=== PATIENT | female | born 1995 | race Caucasian/White ===

== ENCOUNTER 2017-01-09 10:25 | Emergency (ER) | payer SELFPAY ==
[2017-01-09] MEDS ORDERED: 0.9 % SODIUM CHLORIDE 1000ML 1,000 ML IV ONE (10:37)
[2017-01-09] MEDS ORDERED: 0.9 % SODIUM CHLORIDE 1,000 ML BAG IV ONE (10:37)
[2017-01-09] MEDS ORDERED: ONDANSETRON HCL IV 4 MG/2 ML VIAL IV ONE (10:37)
[2017-01-09] MEDS ORDERED: MORPHINE SULFATE 5 MG/ML PFS IVP ONE ×2 (10:38→12:08)
--- NOTE | 2017-01-09 10:44 | Emergency Department Record ---
History of Present Illness - General Chief Complaint: Abdominal Pain Stated Complaint: ABD PAIN/VOMITING/DIZZY Time Seen by Provider: 01/09/17 10:31 Source: Patient, Family Mode of Arrival: Ambulatory Limitations: No limitations - History of Present Illness Initial Comments: 21 yo female presents with nausea, vomiting, and diarrhea for about 2-3 weeks. She states several family members had the illness at that time but her symptoms have persisted. She has cramps and frequent stools. The cramps are periumbilical. No prior abdominal surgery. She was seen in the [facility] yesterday. She reports she was told she had a UTI. Currently she is not having frequency, dysuria, hematuria. MD Complaint: Abdominal pain, Other (Vomiting and diarrhea) -: Week(s) (3) Location: Periumbilical Radiation: None Migration to: No migration Severity: Moderate Quality: Aching, Cramping Consistency: Constant Improves With: Nothing Worsens With: Eating Associated Symptoms: Anorexia, Diarrhea, Nausea, Vomiting - Related Data Patient : No Home Medications Medication Instructions Recorded Confirmed Last Taken Levonorgestrel [Mirena] 1 each IY ASDIR each 08/01/16 01/09/17 01/08/17 Previous Rx's Medication Instructions Recorded Hydrocodone/Acetaminophen [Alton 1 tab PO Q6H PRN #10 tab 01/09/17 5mg/325mg] Ondansetron [Zofran Odt] 4 mg PO Q8H #15 tab.rapdis 01/09/17 Allergies Allergy/AdvReac Type Severity Reaction Status Date / Time azithromycin Allergy Mild HIVES Verified 01/09/17 10:41 tetanus immune globulin Allergy DIFFICULTY Verified 01/09/17 10:41 BREATHING Review of Systems Constitutional: Denies: Chills, Fever, Malaise, Weakness Eyes: Denies: Eye discharge, Eye pain, Photophobia ENT: Denies: Congestion, Ear pain, Throat pain Respiratory: Denies: Cough, Dyspnea, Hemoptysis, Stridor, Wheezes Cardiovascular: Denies: Chest pain, Syncope Endocrine: Denies: Fatigue, Polydipsia Gastrointestinal: Reports: Abdominal pain, Diarrhea, Nausea, Vomiting. Denies: Constipation, Hematemesis, Hematochezia, Melena Genitourinary: Denies: Dysuria, Frequency, Hematuria, Urgency Musculoskeletal: Denies: Arthralgia, Back pain, Joint swelling, Myalgia, Neck pain Skin: Denies: Bruising, Change in color, Rash Neurological: Denies: Headache, Numbness, Weakness Psychiatric: Denies: Anxiety Hematological/Lymphatic: Denies: Blood Clots, Easy bleeding, Easy bruising, Swollen glands Past Medical History - SOCIAL HISTORY Smoking Status: Never smoker Drug Use: None - RESPIRATORY Hx Respiratory Disorders: Yes Hx Bronchitis: Yes Hx Pneumonia: Yes - CARDIOVASCULAR Hx Cardio Disorders: No - NEURO Hx Neuro Disorders: No - GI Hx GI Disorders: No - Hx Genitourinary Disorders: No - ENDOCRINE Hx Endocrine Disorders: No - MUSCULOSKELETAL Hx Musculoskeletal Disorders: No - PSYCH Hx Psych Problems: Yes Hx Anxiety: Yes Hx Depression: Yes - HEMATOLOGY/ONCOLOGY Hx Hematology/Oncology Disorders: No Physical Exam - General General Appearance: Alert, Oriented x3, Cooperative, No acute distress Limitations: No limitations - Head Head exam: Normal inspection - Eye Eye exam: Normal appearance. negative: Conjunctival injection, Periorbital swelling - ENT ENT exam: Normal exam, Mucous membranes moist Ear exam: Normal external inspection Nasal Exam: Normal inspection Mouth exam: Normal external inspection Teeth exam: Normal inspection - Neck Neck exam: Normal inspection, Full ROM. negative: Tenderness - Respiratory Respiratory exam: Normal lung sounds bilaterally. negative: Respiratory distress - Cardiovascular Cardiovascular Exam: Regular rate, Normal rhythm, Normal heart sounds - GI/Abdominal GI/Abdominal exam: Soft, Normal bowel sounds, Tenderness (tender mid periumbilical, soft, no distension, no mass or hernia). negative: Diminished bowel sounds, Distended, Guarding, Hernia, Rebound - Rectal Rectal exam: Deferred - exam: Deferred - Extremities Extremities exam: Normal inspection, Full ROM, Normal capillary refill. negative: Tenderness - Back Back exam: Reports: Normal inspection, Full ROM. Denies: Muscle spasm, Rash noted, Tenderness - Neurological Neurological exam: Alert, Normal gait, Oriented X3 - Psychiatric Psychiatric exam: Normal affect, Normal mood - Skin Skin exam: Dry, Intact, Normal color, Warm Course - Reevaluation(s) Reevaluation #1: Given the duration of symptoms labs, stool culture and CT ordered 01/09/17 10:43 Reevaluation #2: The labs were reviewed. No acute changes of the CBC, CMP,Lipase, UA is LE positive. Micro pending 01/09/17 12:04 Reevaluation #3: CT of the abdomen and pelvis were negative for acute process. May have recent ruptured follicle. 01/09/17 14:00 Reevaluation #4: No diarrhea while in the ED She will be given an out patient stool study RX She can continue antibiotics 01/09/17 14:00 Medical Decision Making - Lab Data Result diagrams: 01/09/17 10:47 01/09/17 10:47 Disposition Disposition: Discharge Clinical Impression: Urinary tract infection Diarrhea Qualifiers: Diarrhea type: unspecified type Qualified Code(s): R19.7 - Diarrhea, unspecified Disposition: Home, Self-Care Condition: (1) Good Instructions: Loperamide (By mouth), Acute Diarrhea (ED) Additional Instructions: Call your doctor today to schedule close follow up Return if fever, vomiting or new concerns. Prescriptions: Hydrocodone/Acetaminophen [Alton 5mg/325mg] 1 tab PO Q6H PRN #10 tab PRN Reason: Pain - General Ondansetron [Zofran Odt] 4 mg PO Q8H #15 tab.rapdis Forms: Patient Portal Access Time of Disposition: 14:23
[2017-01-09 10:53] LABS: HEMATOCRIT 40.1 % (35.0-47.0); HEMOGLOBIN 13.9 gm/dl (11.6-16.0); MEAN CELL VOLUME 87.4 fl (81-97); MEAN CORPUSCULAR HEMOGLOBIN 30.3 pg (27-33); MEAN CORPUSCULAR HGB CONC 34.7 g/dl (32-36); MEAN PLATELET VOLUME 10.4 fl (7.4-10.4); PLATELET COUNT 227 K/uL (130-400); RED BLOOD COUNT 4.59 M/uL (3.80-5.40); RED CELL DISTRIBUTION WIDTH 11.9 % (11.5-14.5); WHITE BLOOD COUNT W/O DIFF 9.3 K/uL (4.2-12.2)
[2017-01-09] MEDS ORDERED: ACETAMINOPHEN 1,000 MG/100 ML BTL IVPB ONE (10:58)
[2017-01-09 11:03] LABS: PLATELET ESTIMATE NORMAL (NORMAL)
[2017-01-09 11:05] LABS: ALB/GLOB RATIO 1.4 (1.1-1.8); ALBUMIN 4.9 gm/dL (3.5-5.0); ALKALINE PHOSPHATASE 76 U/L (38-126); ALT/SGPT 22 U/L (9-52); ANION GAP 12.9 (7-16); AST/SGOT 21 U/L (14-36); BILIRUBIN,TOTAL 1.22 mg/dL (0.2-1.3); BLOOD UREA NITROGEN 12 mg/dL (7-17); CARBON DIOXIDE 23.1 mmol/L (22-30); CREATININE 0.7 mg/dL (0.52-1.04); EST GLOMERULAR FILTRATION RATE > 60 ml/min; GLUCOSE,RANDOM 108 mg/dL (70-110); LIPASE 39 U/L (23-300); TOTAL PROTEIN 8.4 gm/dL (6.3-8.2)
[2017-01-09 11:53] LABS: URINE APPEARANCE SL CLOUDY; URINE BILIRUBIN NEGATIVE (NEGATIVE); URINE BLOOD TRACE-I (NEGATIVE); URINE COLOR YELLOW; URINE GLUCOSE (UA) NEGATIVE (NEGATIVE); URINE KETONE NEGATIVE (NEGATIVE); URINE LEUKOCYTE ESTERASE MODERATE (NEGATIVE); URINE NITRITE NEGATIVE (NEGATIVE); URINE PROTEIN NEGATIVE (NEGATIVE); URINE UROBILINOGEN 0.2 E.U./dL (0.20 - 1.00)
[2017-01-09 12:03] LABS: URINE BACTERIA 1+; URINE WBC 36 - 50 (0-2/hpf)
[2017-01-09 12:04] LABS: HCG,QUALITATIVE URINE NEGATIVE (NEGATIVE)
[2017-01-09] MEDS ORDERED: ONDANSETRON HCL IV 4 MG/2 ML VIAL IVP ONE (12:20)
[2017-01-09] MEDS ORDERED: PROMETHAZINE HCL 25 MG/ML VIAL IVP ONE (12:41)
[2017-01-09 22:02] LABS: ROTOVIRUS NOT DETECTED (NOT DETECT)
[2017-01-09 22:10] LABS: CRYPTOSPORIDIUM PARVUM ANTIGEN NOT DETECTED (NOT DETECT); GIARDIA LAMBLIA ANTIGEN NOT DETECTED (NOT DETECT)
[2017-01-09 22:48] LABS: MOLECULAR C DIFF TOXIN SCREEN NOT DETECTED
--- NOTE | 2017-01-10 07:43 | CT SCAN REPORT ---
EXAM: CT OF THE ABDOMEN AND PELVIS WITH CONTRAST HISTORY: ABDOMINAL PAIN AND BACK PAIN. TECHNIQUE: Sequential axial images were obtained from the diaphragms through the ischiorectal fossa after intravenous and oral administration of 100 ml of Omnipaque 300 contrast material. Sagittal and coronal reformatted images were performed. FINDINGS: The visualized lung bases appear normal. The heart and pericardium appears normal. The liver, gallbladder, pancreas and spleen appear normal. The adrenal glands and kidneys appear normal. The small bowel appears normal. The appendix is visualized and appears normal. There is an IUD within the endometrium. There is a recently ruptured follicle in the right ovary. There is a small amount of free fluid in the cul-de-sac. The urinary bladder appears normal. The osseous structures are normal. IMPRESSION: NO ACUTE ABDOMINAL OR PELVIC DISEASE PROCESS. JOB NUMBER: [id number] [facility]
== END 2017-01-09 14:39 | disposition home or self-care (01) ==
LOC: ER 10:25
DX: N39.0 Urinary tract infection, site not specified (principal); R10.33 Periumbilical pain; R11.2 Nausea with vomiting, unspecified; R19.7 Diarrhea, unspecified; R42 Dizziness and giddiness
CPT/HCPCS: 74177; 80053; 81001; 81025; 82272; 83690; 85027; 87329; 87425; 87427; 87493; 89055; 96361; 96374; 96375; 96376; 99284; J2405; J2550; J7030

== ENCOUNTER 2017-03-08 13:04 | Emergency (ER) | payer SELFPAY ==
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
[2017-03-08] MEDS ORDERED: ONDANSETRON 4 MG ODT TABLET SL ONE (14:08)
[2017-03-08] MEDS ORDERED: ACETAMINOPHEN 500 MG TABLET PO ONE (14:33)
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
--- NOTE | 2017-03-08 23:27 | CT SCAN REPORT ---
EXAM: CT SCAN MAXILLOFACIAL WO CONTRAST HISTORY: HEADACHE, JAW PAIN. TECHNIQUE: Sequential axial images were obtained through the facial bones without intravenous contrast administration. Sagittal and coronal reformatted images were performed. FINDINGS: The paranasal sinuses are well aerated. The orbital rims are intact. The zygomatic arch is intact. The mandible is intact. There are a few missing teeth. No periapical lucencies. No evidence of fracture or dislocation. IMPRESSION: NEGATIVE FOR ACUTE ABNORMALITY. [facility]: [id number] [facility]
--- NOTE | 2017-03-08 23:30 | CT SCAN REPORT ---
EXAM: CT SCAN CERVICAL SPINE WO CONTRAST HISTORY: PAIN. TECHNIQUE: Sequential axial images were obtained through the cervical spine without intravenous contrast administration. FINDINGS: There is normal vertebral body height and alignment. No evidence of fracture, subluxation, or perched facet. No degenerative change. Prevertebral soft tissues are normal. IMPRESSION: NEGATIVE CT EXAMINATION OF THE CERVICAL SPINE. JOB NUMBER: [id number] [facility]
== END 2017-03-08 14:55 | disposition home or self-care (01) ==
LOC: ER 13:04
DX: S06.0X0A Concussion without loss of consciousness, initial encounter (principal); S00.03XA Contusion of scalp, initial encounter; S40.022A Contusion of left upper arm, initial encounter; M54.2 Cervicalgia; Z85.3 Personal history of malignant neoplasm of breast; Y04.0XXA Assault by unarmed brawl or fight, initial encounter
CPT/HCPCS: 70450; 70486; 72125; 99283; 99284

== ENCOUNTER 2017-08-13 05:44 | Emergency (ER) | payer SELFPAY ==
[2017-08-13 05:55] LABS: INFLUENZA A POSITIVE (NEGATIVE); INFLUENZA B NEGATIVE (NEGATIVE)
[2017-08-13] MEDS ORDERED: OSTELTAMIVIR 75 MG CAP PO ONE (06:02)
[2017-08-13] MEDS ORDERED: ACETAMINOPHEN 500 MG TABLET PO ONE (06:02)
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
== END 2017-08-13 06:16 | disposition home or self-care (01) ==
LOC: ER 05:44
DX: J10.1 Influenza due to other identified influenza virus with other respiratory manifestations (principal)
CPT/HCPCS: 87400; 99282

== ENCOUNTER 2017-09-08 04:23 | Emergency (ER) | payer SELFPAY ==
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
[2017-09-08] MEDS ORDERED: KETOROLAC 30 MG/ML VIAL IVP ONE (04:43)
[2017-09-08 04:46] LABS: BASO % 0.2 % (0-6); EOS % 0.9 % (0-6); HEMATOCRIT 34.9 % (35.0-47.0); HEMOGLOBIN 11.7 gm/dl (11.6-16.0); LYMPH % 42.5 % (16-45); MEAN CELL VOLUME 87.5 fl (81-97); MEAN CORPUSCULAR HEMOGLOBIN 29.3 pg (27-33); MEAN CORPUSCULAR HGB CONC 33.5 g/dl (32-36); MEAN PLATELET VOLUME 10.2 fl (7.4-10.4); MONO % 8.4 % (0-9); PLATELET COUNT 198 K/uL (130-400); RED BLOOD COUNT 3.99 M/uL (3.80-5.40); RED CELL DISTRIBUTION WIDTH 12.1 % (11.5-14.5); WHITE BLOOD COUNT W/O DIFF 5.8 K/uL (4.2-12.2)
[2017-09-08 04:55] LABS: BLOOD UREA NITROGEN 12 mg/dL (6-20); CREATININE 0.6 mg/dL (0.5-0.9); EST GLOMERULAR FILTRATION RATE > 60 mL/min
[2017-09-08 04:56] LABS: TOTAL PROTEIN 6.7 g/dL (6.6-8.7)
[2017-09-08 04:58] LABS: GLUCOSE,RANDOM 97 mg/dL (74-109)
[2017-09-08 05:01] LABS: ALB/GLOB RATIO 2.4 (1.1-1.8); ALBUMIN 4.7 g/dL (4.0-5.0); ALKALINE PHOSPHATASE 49 U/L (35-104); ALT/SGPT 16 U/L (<33); AST/SGOT 19 U/L (10.0-35.0)
--- NOTE | 2017-09-09 07:37 | CT ANGIOGRAM REPORT ---
EXAM: CTA OF THE CHEST HISTORY: CHEST PAIN. TECHNIQUE: CTA of the chest was performed following IV administration of 90 ml of Omnipaque 350 contrast. Axial images were obtained with coronal and sagittal MIP reconstructions. Comparison: None. FINDINGS: The visualized thyroid gland enhances normally. The mediastinal vasculature enhances normally. There is no intraluminal filling defect to suggest pulmonary embolus. Negative for thoracic aortic aneurysm or dissection. The heart and pericardium are unremarkable. No mediastinal or hilar adenopathy. Soft tissue density in the anterior mediastinum likely relates to residual thymic tissue, given patient age. Limited evaluation of the upper abdomen is unremarkable. The osseous structures are grossly intact. No pneumothorax. The visualized airways are patent. The lungs are clear. IMPRESSION: NEGATIVE CTA OF THE CHEST. JOB NUMBER: [id number] MTDD
== END 2017-09-08 08:12 | disposition home or self-care (01) ==
LOC: ER 04:23
DX: R07.2 Precordial pain (principal); R79.89 Other specified abnormal findings of blood chemistry; R42 Dizziness and giddiness
CPT/HCPCS: 99284 ×2; 96374; 85025; 80053; 84703; 85379; 71275; 93005; 93010; Q9967; J1885

== ENCOUNTER 2018-11-19 12:31 | Emergency (ER) | payer MEDICAID ==
[2018-11-19] MEDS ORDERED: 0.9 % SODIUM CHLORIDE 1,000 ML BAG IV ONE (12:39)
[2018-11-19] MEDS ORDERED: ACETAMINOPHEN 1,000 MG/100 ML BTL IVPB ONE (12:39)
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
[2018-11-19 13:11] LABS: ABSOLUTE NEUTROPHIL COUNT 4.96; BASO % 0.1 % (0-6); EOS % 0.1 % (0-6); GRAN % 64.4 % (47-80); HEMATOCRIT 34.2 % (35.0-47.0); HEMOGLOBIN 11.8 gm/dl (11.6-16.0); LYMPH % 28.9 % (16-45); MEAN CELL VOLUME 88.8 fl (81-97); MEAN CORPUSCULAR HEMOGLOBIN 30.6 pg (27-33); MEAN CORPUSCULAR HGB CONC 34.5 g/dl (32-36); MEAN PLATELET VOLUME 10.4 fl (7.4-10.4); MONO % 6.5 % (0-9); PLATELET COUNT 210 K/uL (130-400); RED BLOOD COUNT 3.85 M/uL (3.80-5.40); RED CELL DISTRIBUTION WIDTH 12.3 % (11.5-14.5); WHITE BLOOD COUNT W/O DIFF 7.7 K/uL (4.2-12.2)
[2018-11-19 13:13] LABS: URINE BILIRUBIN NEGATIVE (NEGATIVE); URINE BLOOD LARGE (NEGATIVE); URINE GLUCOSE (UA) NEGATIVE (NEGATIVE); URINE KETONE TRACE (NEGATIVE); URINE LEUKOCYTE ESTERASE TRACE (NEGATIVE)
[2018-11-19 13:22] LABS: URINE APPEARANCE CLOUDY; URINE COLOR DARK YELLOW
[2018-11-19 13:23] LABS: URINE EPITHELIAL CELLS NONE SEEN (FEW); URINE WBC 0 - 2 (0-2/hpf)
[2018-11-19 13:26] LABS: BLOOD UREA NITROGEN 10 mg/dL (6-20); CREATININE 0.5 mg/dL (0.5-0.9); EST GLOMERULAR FILTRATION RATE > 60 mL/min
[2018-11-19 13:27] LABS: TOTAL PROTEIN 7.2 g/dL (6.6-8.7)
[2018-11-19 13:29] LABS: GLUCOSE,RANDOM 101 mg/dL (74-109)
[2018-11-19 13:31] LABS: ALB/GLOB RATIO 1.8 (1.1-1.8); ALBUMIN 4.6 g/dL (4.0-5.0); ALT/SGPT 16 U/L (<33); AST/SGOT 19 U/L (10.0-35.0)
[2018-11-19 13:32] LABS: ALKALINE PHOSPHATASE 50 U/L (35-104)
[2018-11-20 09:51] LABS: GC SPECIMEN TYPE Vaginal
--- NOTE | 2018-11-22 08:01 | ULTRASOUND REPORT ---
EXAM: ULTRASOUND OB PELV W TV - EARLY (4-13wks) HISTORY: MIDLINE LOWER ABDOMINAL PAIN WORSENING OVER LAST FEW DAYS. HEAVY BLEEDING FOR TWO HOURS. TECHNIQUE: Transabdominal ultrasound examination of the pelvis is performed. Transvaginal imaging is also performed for further evaluation of the uterus and adnexa. COMPARISON: OB ultrasound dated 11/09/2018. FINDINGS: TRANSABDOMINAL FINDINGS: The uterus is normal in position and smoothly marginated. It measures 11.1 x 6.9 x 7.4 cm. No myometrial mass. A single intrauterine gestational sac with pole within is again demonstrated. The gestational sac measures 4.2 x 2.2 x 4.8 cm corresponding to a gestational age of 8 weeks, 6 days. [place]-rump lengths range between 2.36 cm and 2.42 cm. Age per crown-rump length is 9 weeks, 1 day. The yolk sac is again demonstrated. motion and cardiac activity identified with a heart rate of 163 beats per minute. The placenta is not yet developed though probably developing anteriorly. The right ovary is visualized and normal in size measuring 2.9 x 1.3 x 2.1 cm. Blood flow is demonstrated within the right ovary with color Doppler and duplex Doppler evaluation. Spectral analysis demonstrates venous and arterial waveforms within the right ovary. The left ovary is visualized and normal in size measuring 2.5 x 2.7 x 2 cm. A small cystic structure is noted within the left ovary measuring 1.4 cm in maximum diameter. Blood flow is demonstrated within the left ovary with color Doppler and duplex Doppler evaluation. Spectral analysis demonstrates venous and arterial waveforms within the left ovary. No adnexal mass nor free pelvic fluid. TRANSVAGINAL FINDINGS: No myometrial mass. There is a tiny nabothian cyst. A single intrauterine gestational sac with pole and yolk sac within redemonstrated. The placenta is not yet developed though likely developing anteriorly. There is a developing amnion visualized with amniotic fluid volume subjectively within the limits of normal. The gestational sac measures 4.8 x 2.7 x 4.3 cm corresponding to a gestational age of 9 weeks, 1 day. [place]-rump length ranges between 2.32 cm and 2.37 cm. This corresponds to an age of 9 weeks, 0 day. cardiac activity is identified with a heart rate of 163 beats per minute. A normal-appearing yolk sac is demonstrated. Each ovary is visualized and normal in size. The right ovary measures 2.6 x 3.3 x 1.7 cm. The left ovary measures 3.6 x 3.3 x 2.6 cm. There is a complex structure within the left ovary measuring 2.5 x 2 x 2.9 cm. This is likely a corpus luteum. Blood flow is demonstrated in each ovary with color Doppler and duplex Doppler evaluation. Spectral analysis demonstrates venous and arterial waveforms within each ovary. No adnexal mass nor free pelvic fluid. IMPRESSION: 1. SINGLE LIVE INTRAUTERINE WITH APPROXIMATE GESTATIONAL AGE PER PRIOR ULTRASOUND OF 8 WEEKS, 6 DAYS. THERE HAS BEEN APPROPRIATE INTERVAL GROWTH WITH AGE PER CURRENT MEASUREMENTS OF 9 WEEKS, 0 DAY. 2. NO EVIDENCE OF SUBCHRONIC HEMORRHAGE. HEART RATE IS 163 BEATS PER MINUTE. 3. COMPLEX CYSTIC STRUCTURE WITHIN THE LEFT OVARY MEASURING 2.5 CM IN MAXIMUM DIAMETER, LIKELY IS A CORPUS LUTEUM CYST. JOB NUMBER: [id number] MTDD
== END 2018-11-19 16:09 | disposition home or self-care (01) ==
LOC: ER 12:31
DX: O20.0 Threatened abortion (principal); Z3A.01 Less than 8 weeks gestation of pregnancy
CPT/HCPCS: 99284 ×2; 96365; 85025; 80053; 81001; 86901; 76817; 76801; Q0111; 87210; J7030